=== PATIENT | female | born 1985 | race Caucasian/White ===

== ENCOUNTER 2018-04-04 15:42 | Observation (INO) | payer MEDICAID, SELFPAY ==
--- NOTE | 2018-04-04 15:40 | EKG12_ITS ---
Test Reason : Blood Pressure : / mmHG Vent. Rate : 060 BPM Atrial Rate : 060 BPM P-R Int : 164 ms QRS Dur : 100 ms QT Int : 466 ms P-R-T Axes : 050 001 013 degrees QTc Int : 466 ms Normal sinus rhythm Normal ECG No previous ECGs available Confirmed by ROBERTO LENZ, RANDEE ([id number]), supervising editor news reel MAMIE DENG ([id number]) on 04/18/2018 12:58:42 PM Referred By: Ana Raya Confirmed By:RANDEE MEJIA MD
[2018-04-04 15:44] VITALS: O2SAT 99; BMI 22.2
--- NOTE | 2018-04-04 15:44 | HP.PCM_ITS ---
Problem List (1) Opiate withdrawal Status: Acute (2) Hepatitis C Status: Acute History of Present Illness Date of Admission: 04/04/18 Chief Complaint: Symptom complex of opiate withdrawal The patient is a 32 year old F with past medical history of hepatitis C, opiate use disorder, she uses heroin daily for over 16 years, she last used this illicit drug yesterday , she now wants to quit. She presents with symptom complex of heroin withdrawal which includes restlessness, anxiety, abdominal pain, back pain, restless legs and nausea. She denies any vomiting , diarrhea or constipation. She is being admitted to the hospital for medical stabilization of her symptoms. Regarding her hepatitis C, denies any treatment , she does not have schemata of chronic liver disease. Past Medical History Surgical History: no surgical history Psychiatric History: No pertinent psych hx Lives: Alone Tobacco Use: Non-smoker Alcohol: None Drugs: None - *Family History Maternal History Items: No pertinent history Review of Systems Comment: This is not pertinent to presenting complaint VTE Information - Inpt Only VTE Present on Admission: Yes VTE Mechan Device Prophylaxis: SCD's VTE Pharm Prophylaxis ordered?: No Patient Problems: Active and Suspected Problems Opiate withdrawal (Acute) Hepatitis C (Acute) - Physical Exam General: Alert, Oriented x3 HEENT: Atraumatic Oral: Moist Mucosa Neck: Supple, No JVD Lungs: Clear to auscultation Cardiovascular: Regular rate, Regular Rhythm, Normal S1, No Ectopic Activity Abdomen: Soft, Non Tender Extremities: No clubbing, No edema Neurological: Cranial nerves II-XII grossly intact, Neuro grossly intact, Motor Exam 5/5 strength throughout Psych/Mental Status: Normal Affect Assessment/Plan All Active Problems Opiate withdrawal (Acute) Hepatitis C (Acute) 1. Acute opiate withdrawal; the patient will be placed on the [facility]iate withdrawal protocol for medical stabilization, will monitor the patient closely. 2. Drug use disorder; the patient is encouraged to follow-up as an outpatient for drug rehabilitation program. 3. Nicotine dependency; She is recommended to quit smoking, she has been offered nicotine replacement therapy. 4. History of hepatitis C, will obtain liver function test and avoid potential hepatotoxic medications. 5. Early ambulation for DVT prophylaxis. Code Visit Inpatient E&M: 67436 Init Hosp L3
--- NOTE | 2018-04-04 16:14 | NURSING ---
meds not available in [facility] at this time
[2018-04-04] MEDS: Ibuprofen 600 MG Tablet PO (16:17)
[2018-04-04] MEDS: Buprenorphine HCl 2 MG TAB.SUBL SL (16:18)
[2018-04-04 16:42] VITALS: BP 109/75; PULSE 60; RESP 18; TEMP 36.7
[2018-04-04 16:49] LABS: Absolute Lymphocyte Count 1.71 X10^3/ul (0.83-4.51); Absolute Neutrophil Count 2.6 X10^3/uL (2.0-7.7); Basophil# 0.01 X10^3/uL; Basophil% 0.2 % (0-1); Eosinophil# 0.01 X10^3/uL; Eosinophils% 0.2 % (0-5); Hematocrit 34.6 % (37-47); Hemoglobin 10.7 g/dl (12.0-15.0); Lymphocyte # 1.71 X10^3/ul (4.0); Lymphocyte % 36.9 % (19-41); Mean Corp Hgb Conc 30.9 g/gl (32-36); Mean Corpuscular Hgb 25.5 pg (27.0-32.0); Mean Corpuscular Volume 82.6 fL (81-99); Mean Platelet Vol. 9.6 fl (6.2-12.0); Monocyte% 6.5 % (0-10); Neutrophil # 2.61 X10^3/uL (2.7-7.7); Neutrophil % 56.2 % (47-70); POSITIVE COUNT NO; POSITIVE DIFFERENTIAL NO; POSITIVE MORPHOLOGY NO; Platelet Count 268 K/mm3 (150-450); RBC Distribution Width CV 17.7 % (11.6-14.6); RBC Distribution Width SD 53.6 fl (35.1-43.9); Red Blood Count 4.19 M/mm3 (4.2-5.4); White Blood Count 4.6 K/mm3 (4.4-11.0)
[2018-04-04 17:00] LABS: ALB/GLOB Ratio 0.8 RATIO (0.9-2.4); AST(SGOT) 23 U/L (15-37); Alanine Aminotransfer ALT/SGPT 32 U/L (13-56); Albumin, Serum 2.9 g/dL (3.2-5.0); Alkaline Phosphatase 55 U/L (45-117); Amylase 38 U/L (25-115); Anion Gap 6 (5-15); BUN 10 mg/dL (7-18); BUN/Creat Ratio 15.1 RATIO (10-20); Calcium,Total 8.3 mg/dL (8.5-10.1); Chloride 107 mmol/L (98-107); Creatinine, Serum 0.66 mg/dL (0.55-1.02); EST Glomerular Filtration Rate 110 mL/min (>60); Est Glom Filt Rate - Afr Amer 133 mL/min (>60); Estimated Creatinine Clearance 97.68 ml/min; Globulin 3.7 g/dL (2.2-4.2); Glucose 104 mg/dL (74-106); Lipase 126 U/L (73-393); Potassium 3.6 mmol/L (3.5-5.1); Protein, Total 6.6 g/dL (6.4-8.2); Sodium Level 141 mmol/L (136-145)
[2018-04-04 17:16] LABS: Pregnancy, Serum, hCG Quali. NEGATIVE Negative (0-9 Nonpreg)
[2018-04-04 21:23] VITALS: BP 90/50; PULSE 59; RESP 18; TEMP 36.8
[2018-04-04 21:26] VITALS: O2SAT 97
[2018-04-04 23:10] LABS: Amphetamine Urine VISTA NEGATIVE (<1000 ng/mL); Barbiturate Urine VISTA NEGATIVE (< 200 ng/mL); Benzodiazepine Urine VISTA NEGATIVE (< 200 ng/mL); Cocaine Urine VISTA POSITIVE (< 300 ng/mL); Ecstacy Urine VISTA NEGATIVE (< 500 ng/mL); Methadone Urine VISTA NEGATIVE (< 300 ng/mL); PCP Urine VISTA NEGATIVE (< 25 ng/mL); THC Urine VISTA NEGATIVE (< 50 ng/mL); Vista UDS pH Range 6
[2018-04-05] VITALS (9 sets, daily range): BP systolic 83–109; BP diastolic 48–75; PULSE 48–62; RESP 18; TEMP 36.3–37; O2SAT 97
[2018-04-05] MEDS: Buprenorphine HCl 2 MG TAB.SUBL SL ×4 (00:29→23:51)
[2018-04-05] MEDS: cloNIDine HCl 0.1 MG Tablet PO (02:34)
[2018-04-05] MEDS: Ibuprofen 600 MG Tablet PO (02:35)
--- NOTE | 2018-04-05 02:41 | NURSING ---
Discussed with patient about past drug use and overdoses. overdosed in November of this year and she just overdosed on Fentanyl before she got admitted this time. has gone through these programs many times but that she does want to get clean this time.
[2018-04-05] MEDS: Multivitamins,Ther W-Minerals Tablet 1 TABLET PO (07:48)
--- NOTE | 2018-04-05 10:11 | PN_ITS ---
Patient Problems: Active and Suspected Problems Opiate withdrawal (Acute) Hepatitis C (Acute) Subjective: Patient was seen and examined. Denies any new complaints. She states she did not sleep well last night and is feeling sleepy today. Denies any cramps, hot or cold flashes, dizziness, palpitations fever, chest pain, nausea or vomiting. Vitals/I&O's: Vital Signs Temp Pulse Resp BP Pulse Ox 97.5 F L 58 L 18 83/48 L 97 04/05/18 06:27 04/05/18 09:00 04/05/18 06:27 04/05/18 06:27 04/05/18 02:27 Oxygen Delivery Method Room Air Weight: 55.1 kg Body Mass Index (BMI) 22.2 Intake and Output for Last 24 Hours 04/03/18 04/04/18 04/05/18 23:59 23:59 23:59 Intake Total 540 / 540 Output Total 400 / 400 Balance 140 / 140 General: Alert, Oriented x3, Cooperative, No apparent distress HEENT: Atraumatic, PERRLA, EOMI, Normocephalic Oral: Moist Mucosa Neck: Supple, No JVD, Negative Carotid Bruits Lungs: Clear to auscultation, Normal air movement Cardiovascular: Regular rate, Regular Rhythm, Normal S1, Normal S2, No murmurs Abdomen: Bowel Sounds Present, Soft, Non Tender, Non-Distended, No Hepato- splenomegaly Extremities: No edema Skin: No rashes, No breakdown Musculoskeletal: No Tenderness to Palpation of Joints or Extremities Lymphatic: No Cervical, Supraclavicular, or Inguinal Adenopathy Neurological: Cranial nerves II-XII grossly intact Psych/Mental Status: Normal Affect, Appropriate Laboratory Results 04/04/18 16:31: WBC 4.6, RBC 4.19 L, Hgb 10.7 L, Hct 34.6 L, MCV 82.6, MCH 25.5 L, MCHC 30.9 L, RDW 17.7 H, RDW Differential 53.6 H, Plt Count 268, MPV 9.6, Immature Gran % (Auto) 0.000, Neut % (Auto) 56.2, Lymph % (Auto) 36.9, [place] % ( Auto) 6.5, Eos % (Auto) 0.2, Baso % (Auto) 0.2, Absolute Neuts (auto) 2.6, Absolute Lymphs (auto) 1.71, Total Counted Not Reportable 04/04/18 16:31: PT 13.0, INR 1.0 04/04/18 16:31: Sodium 141, Potassium 3.6, Chloride 107, Carbon Dioxide 28.0, Anion Gap 6, BUN 10, Creatinine 0.66, Estim Creat Clear Calc 97.68, Est GFR ( MDRD) Af Amer 133, Est GFR (MDRD) Non-Af 110, BUN/Creatinine Ratio 15.1, Glucose 104, Calcium 8.3 L, Total Bilirubin 0.10 L, AST 23, ALT 32, Alkaline Phosphatase 55, Total Protein 6.6, Albumin 2.9 L, Globulin 3.7, Albumin/ Globulin Ratio 0.8 L, Amylase 38, Lipase 126 04/04/18 16:31: Serum , Qual NEGATIVE 04/04/18 22:40: Urine Opiates Screen POSITIVE H, Urine Methadone Screen NEGATIVE , Ur Barbiturates Screen NEGATIVE, Ur Phencyclidine Scrn NEGATIVE, Ur Amphetamines Screen NEGATIVE, U Methamphetamin-MDMA NEGATIVE, U Benzodiazepines Scrn NEGATIVE, Urine Cocaine Screen POSITIVE H, U Cannabinoids Screen NEGATIVE, Ur Drug Screen Comment Current Medications Acetaminophen (Tylenol) 500 mg PO Q4H PRN PRN PRN Reason: Temp > 100.4 F Buprenorphine HCl (Buprenorphine Hcl) 4 mg SL Q8H VIRI PRN Reason: Taper Stop: 04/07/18 19:59 Last Admin: 04/05/18 07:50 Dose: 4 mg Chlordiazepoxide (Librium) 25 mg PO Q6H PRN PRN PRN Reason: Anxiety Score 2-3/3 Clonidine (Catapres) 0.1 mg PO Q2H PRN PRN PRN Reason: Hot/Cold Sweats or Anxiety Last Admin: 04/05/18 02:34 Dose: 0.1 mg Dicyclomine HCl (Bentyl) 20 mg PO Q6H PRN PRN PRN Reason: Abdomnial Discomfort Hydroxyzine Pamoate (Vistaril Pamoate Capsule) 50 mg PO Q6H PRN PRN PRN Reason: Mild Anxiety (score 1/3) Ibuprofen (Motrin) 600 mg PO Q8H PRN PRN PRN Reason: Mild-Moderate Pain (1-5/10) Last Admin: 04/05/18 02:35 Dose: 600 mg Loperamide HCl (Imodium) 2 - 4 mg PO UD PRN PRN Reason: LOOSE STOOLS Methocarbamol (Methocarbamol) 750 mg PO Q6H PRN PRN PRN Reason: Muscle Aches Multivitamins/Minerals ([facility]) [facility] Last Admin: 04/05/18 07:48 Dose: 1 tablet Nicotine (Nicoderm Cq (Pbkc)) 21 mg TRANSDERM. DAILY [facility] Last Admin: 04/05/18 09:16 Dose: Not Given Ondansetron HCl (Zofran Odt) 4 mg PO Q6H PRN PRN PRN Reason: NAUSEA Pramipexole Dihydrochloride (Mirapex) 0.25 mg PO Q12H PRN PRN PRN Reason: Restless Legs Senna (Senokot) 1 tablet PO QHS PRN PRN Reason: Constipation Medical Necessity - Tobacco Use Smoking Status: Current every day smoker Tobacco Use: Non-smoker Assessment/Plan All Active Problems Opiate withdrawal (Acute) Hepatitis C (Acute) 2-year-old female with past medical history of hepatitis C, chronic opioid/ heroin use who comes in with complaints of opiate withdrawal. Last use of heroin was yesterday. 1. Acute opiate withdrawal, without complications, stable vitals , improving, on the [facility] opiate withdrawal protocol for medical stabilization, will continue to monitor the patient closely. 2. Polysubstance use dependency-heroin, patient advised to quit, encouraged to follow up in the outpatient drug rehab program 3. Nicotine dependency, advised smoking, on nicotine patch 4. History of hepatitis C, admitting LFTs are normal, patient is to follow-up in the outpatient for treatment of hepatitis C 5. Early ambulation for DVT prophylaxis Code Visit Inpatient E&M: 56913 Subs Hosp L2
--- NOTE | 2018-04-05 17:55 | CHAPLAIN ---
Type of Pastoral Visit _x__ Initial Visit ___ Follow-up Visit ___ On-call Visit ___ General Patient Visit ___ Spiritual Assessment ___ Family Conference ___ Bereavement ___ Rapid Response ___ Code Blue ___ Other (describe below) Pastoral Care Referral From _x__ Patient ___ Family ___ Nurse ___ Physician ___ [place] ___ Director Of Strategic Partnerships ___ Other (describe below) Sacrament/Intervention _x__ Active listening ___ Anointing ___ Hindu ___ Bereavement ___ Communion ___ Sepideh exploration ___ ___ Life review _x__ Prayer ___ Reconciliation ___ Sacrament of Sick _x__ Supportive presence ___ Wedding ___ Other (describe below) Pastoral Comments patient appears very tired and speaks of that; pt answers questions but does not engage well in conversation; pt presents with attitude that 'nothing will change', 'this is my last attempt', 'don't think God cares', 'no real support in life';
[2018-04-06 06:42] VITALS: BP 104/67; PULSE 60; RESP 16; TEMP 36.7
--- NOTE | 2018-04-06 08:05 | PCM.PN.HOSP ---
Patient Problems: Active and Suspected Problems Opiate withdrawal (Acute) Hepatitis C (Acute) Subjective: Patient was seen and examined. Denies any new complaints. Has some hot and cold flushes. Denies nausea, vomiting, diarrhea. Objective: Physical exam: General: Alert, Oriented x3, Cooperative, No apparent distress HEENT: Atraumatic, PERRLA, EOMI, Normocephalic Oral: Moist Mucosa Neck: Supple, No JVD, Negative Carotid Bruits Lungs: Clear to auscultation, Normal air movement Cardiovascular: Regular rate, Regular Rhythm, Normal S1, Normal S2, No murmurs Abdomen: Bowel Sounds Present, Soft, Non Tender, Non-Distended, No Hepato-splenomegaly Extremities: No edema Skin: No rashes, No breakdown Musculoskeletal: No Tenderness to Palpation of Joints or Extremities Lymphatic: No Cervical, Supraclavicular, or Inguinal Adenopathy Neurological: Cranial nerves II-XII grossly intact Psych/Mental Status: Normal Affect, Appropriate Vitals/I&O's: Vital Signs Temp Pulse Resp BP Pulse Ox 98.1 F 60 16 104/67 97 04/06/18 06:42 04/06/18 06:42 04/06/18 06:42 04/06/18 06:42 04/05/18 02:27 Oxygen Delivery Method Room Air Weight: 55.1 kg Body Mass Index (BMI) 22.2 Intake and Output for Last 24 Hours 04/04/18 04/05/18 04/06/18 23:59 23:59 23:59 Intake Total 2950 / 2950 120 / 120 Output Total 400 / 400 Balance 2550 / 2550 120 / 120 Current Medications Acetaminophen (Tylenol) 500 mg PO Q4H PRN PRN PRN Reason: Temp > 100.4 F Buprenorphine HCl (Buprenorphine Hcl) 2 mg SL Q12H VIRI PRN Reason: Taper Stop: 04/07/18 19:59 Last Admin: 04/05/18 23:51 Dose: 2 mg Chlordiazepoxide (Librium) 25 mg PO Q6H PRN PRN PRN Reason: Anxiety Score 2-3/3 Clonidine (Catapres) 0.1 mg PO Q2H PRN PRN PRN Reason: Hot/Cold Sweats or Anxiety Last Admin: 04/05/18 02:34 Dose: 0.1 mg Dicyclomine HCl (Bentyl) 20 mg PO Q6H PRN PRN PRN Reason: Abdomnial Discomfort Hydroxyzine Pamoate (Vistaril Pamoate Capsule) 50 mg PO Q6H PRN PRN PRN Reason: Mild Anxiety (score 1/3) Ibuprofen (Motrin) 600 mg PO Q8H PRN PRN PRN Reason: Mild-Moderate Pain (1-5/10) Last Admin: 04/05/18 02:35 Dose: 600 mg Loperamide HCl (Imodium) 2 - 4 mg PO UD PRN PRN Reason: LOOSE STOOLS Methocarbamol (Methocarbamol) 750 mg PO Q6H PRN PRN PRN Reason: Muscle Aches Multivitamins/Minerals ([facility]ivitamin With Minerals) [facility] Last Admin: 04/05/18 07:48 Dose: 1 tablet Nicotine (Nicoderm Cq (Pbkc)) 21 mg TRANSDERM. DAILY [facility] Last Admin: 04/05/18 09:16 Dose: Not Given Ondansetron HCl (Zofran Odt) 4 mg PO Q6H PRN PRN PRN Reason: NAUSEA Pramipexole Dihydrochloride (Mirapex) 0.25 mg PO Q12H PRN PRN PRN Reason: Restless Legs Senna (Senokot) 1 tablet PO QHS PRN PRN Reason: Constipation Medical Necessity - Tobacco Use Smoking Status: Current every day smoker Tobacco Use: Non-smoker Assessment/Plan All Active Problems Opiate withdrawal (Acute) Hepatitis C (Acute) 32-year-old female with past medical history of hepatitis C, chronic opioid/heroin use who comes in with complaints of opiate withdrawal. Last use of heroin was yesterday. 1. Acute opiate withdrawal, improving, will continue on the [facility] opiate withdrawal protocol for medical stabilization 2. Heroin dependency, patient advised to quit, encouraged to follow up in the outpatient drug rehab program 3. Nicotine dependency, advised smoking, on nicotine patch 4. History of hepatitis C, admitting LFTs are normal, patient is to follow-up in the outpatient for treatment of hepatitis C 5. Early ambulation for DVT prophylaxis Code Visit Inpatient E&M: 16119 Subs Hosp L2
[2018-04-06] MEDS: Buprenorphine HCl 2 MG TAB.SUBL SL ×2 (08:22→20:16)
[2018-04-06] MEDS: Multivitamins,Ther W-Minerals Tablet 1 TABLET PO (08:22)
[2018-04-06 10:00] VITALS: BP 94/55; PULSE 52; PULSE 56; RESP 18; TEMP 37.1
[2018-04-06 14:00] VITALS: BP 102/64; PULSE 53; RESP 18; TEMP 36.5
[2018-04-06 16:00] VITALS: PULSE 54; RESP 18
[2018-04-06 18:00] VITALS: BP 100/57; PULSE 49; RESP 18; TEMP 36.8
[2018-04-06 20:08] VITALS: BP 88/50; PULSE 51; RESP 18; TEMP 36.4
[2018-04-07 01:48] VITALS: BP 100/53; PULSE 55; RESP 16; TEMP 36.5
--- NOTE | 2018-04-07 07:44 | PCM.DC ---
- Discharge Diagnoses Current Active Problems: Current Active and Chronic Problems Opiate withdrawal (Acute) Hepatitis C (Acute) Reason(s) for Visit for Discharge Instructions: Acute opiate withdrawal You will use the following diet at home:: Regular Your food should be the consistency of: Regular Your liquids should be the consistency of: Regular/Thin Discharge Activity: Return to Normal Activity Allergies/Adverse Reactions: Allergies No Known Allergies Allergy (Verified 04/04/18 16:06) Primary Care Physician: Care Physician,No Primary [Primary Care Provider] - Please follow up with your Primary Care Physician in: within 2 weeks Proposed Discharge Date: 04/07/18
--- NOTE | 2018-04-07 07:45 | PCM.DC.SUM ---
Discharge Date and Diagnosis - Problem List Patient Problems: Active and Suspected Problems Opiate withdrawal (Acute) Hepatitis C (Acute) Date of Admission: 04/04/18 Date of Discharge: 04/07/18 - Primary Discharge Diagnosis Active and Suspected Problems Opiate withdrawal (Acute) - Secondary Discharge Diagnosis Nicotine dependency Heroin, cocaine dependency Hospital Course and Treatment None Operations: None Procedures: None Summary of Care Provided: 32-year-old female with past medical history of chronic hepatitis C, chronic opioid/heroin, cocaine, meth use who comes in with complaints of opiate withdrawal. Last use of heroin was 04/03/18. Patient was admitted and put on the buprenorphine protocol under the [facility] program. She did very well with minimal withdrawal symptoms. On the day of discharge, patient denies of any post discharge plan even though she had said earlier on during admission that she was going to follow-up with the MAT program. 1. Acute opiate withdrawal, managed under the [facility] opiate withdrawal protocol with buprenorphine. 2. Heroin dependency, patient advised to quit, encouraged to follow up in the outpatient drug rehab program. 3. Nicotine dependency, advised smoking, on nicotine patch. 4. History of hepatitis C, admitting LFTs are normal, encouraged to follow-up in the outpatient for treatment of hepatitis C. Discharge Diet: No Restrictions Discharge Activity: Return to Normal Activity Primary Care Physician: Care Physician,No Primary [Primary Care Provider] - Please follow up with your Primary Care Physician in: within 2 weeks Disposition: Home Minutes spent on discharge:: 35 Patient Condition:: Stable Medical Necessity - Tobacco Use Smoking Status: Current every day smoker Tobacco Use: Non-smoker Meaningful Use Info Meaningful Use Diagnoses (Choose all that apply): None applicable Code Visit Inpatient E&M: 43217 Disch Hosp
--- NOTE | 2018-04-07 07:50 | DS.PCM_ITS ---
Discharge Date and Diagnosis - Problem List Patient Problems: Active and Suspected Problems Opiate withdrawal (Acute) Hepatitis C (Acute) Date of Admission: 04/04/18 Date of Discharge: 04/07/18 - Primary Discharge Diagnosis Active and Suspected Problems Opiate withdrawal (Acute) - Secondary Discharge Diagnosis Nicotine dependency Heroin, cocaine dependency Hospital Course and Treatment None Operations: None Procedures: None Summary of Care Provided: 32-year-old female with past medical history of chronic hepatitis C, chronic opioid/heroin, cocaine, meth use who comes in with complaints of opiate withdrawal. Last use of heroin was 04/03/18. Patient was admitted and put on the buprenorphine protocol under the [employer] program. She did very well with minimal withdrawal symptoms. On the day of discharge, patient denies of any post discharge plan even though she had said earlier on during admission that she was going to follow-up with the MAT program. 1. Acute opiate withdrawal, managed under the [employer] opiate withdrawal protocol with buprenorphine. 2. Heroin dependency, patient advised to quit, encouraged to follow up in the outpatient drug rehab program. 3. Nicotine dependency, advised smoking, on nicotine patch. 4. History of hepatitis C, admitting LFTs are normal, encouraged to follow-up in the outpatient for treatment of hepatitis C. Discharge Diet: No Restrictions Discharge Activity: Return to Normal Activity Primary Care Physician: Care Physician,No Primary [Primary Care Provider] - Please follow up with your Primary Care Physician in: within 2 weeks Disposition: Home Minutes spent on discharge:: 35 Patient Condition:: Stable Medical Necessity - Tobacco Use Smoking Status: Current every day smoker Tobacco Use: Non-smoker Meaningful Use Info Meaningful Use Diagnoses (Choose all that apply): None applicable Code Visit Inpatient E&M: 08951 Disch Hosp
[2018-04-07 08:27] VITALS: BP 95/53; PULSE 54; RESP 18; TEMP 36.6; O2SAT 98
[2018-04-07 08:30] VITALS: BP 95/53; PULSE 54; RESP 18; TEMP 36.6
[2018-04-07] MEDS: Multivitamins,Ther W-Minerals Tablet 1 TABLET PO (08:30)
[2018-04-07] MEDS: Buprenorphine HCl 2 MG TAB.SUBL SL (08:30)
== END 2018-04-07 09:30 | disposition home or self-care (01) | DRG 434 ==
PROVIDERS: Admitting Provider Internal Medicine; Referring Provider Internal Medicine; Visit Provider Internal Medicine
DX: F11.23 Opioid dependence with withdrawal (principal); F17.200 Nicotine dependence, unspecified, uncomplicated; B17.10 Acute hepatitis C without hepatic coma
CPT/HCPCS: 36415; 80053; 80307; 82150; 83690; 84703; 85025; 85610; 93005; 99218; 99406; G0378; G0379